=== PATIENT | male | born 1990 | race Caucasian/White ===

== ENCOUNTER 2021-11-30 10:06 | Emergency (ER) | payer SELFPAY ==
[2021-11-30 10:21] VITALS: BP 132/80; PULSE 85; RESP 18; TEMP 36.7; O2SAT 99; BMI 24.2
--- NOTE | 2021-11-30 10:41 | ED.FEVER ---
HPI - Fever General Chief Complaint: Fever Stated Complaint: Swelling in side of face, sores on neck, fever Time Seen by Provider: 11/30/21 10:34 Source: patient and family Mode of arrival: Ambulatory History of Present Illness HPI Narrative: The patient has multiple open skin lesions. The oldest 1 is been the back of his neck for 1 year. He has multiple open ulcer type lesions on his forearms and his neck. Over last couple days he has developed significant erythema and tenderness to the left jaw area. There is swelling at the site. He denies ear pain, rhinorrhea, or sore throat. He has no trismus. He has no posterior neck pain or stiffness. Denies cough or dyspnea. He denies chronic skin disease. He acknowledgs he picks the skin lesions frequently. Related Data Previous Rx's Medication Instructions Recorded sulfamethoxazole 800 1 tab PO BID 10 Days #20 tab 11/30/21 mg-trimethoprim 160 mg tablet Allergies Allergy/AdvReac Type Severity Reaction Status Date / Time No Known Drug Allergies Allergy Verified 11/30/21 10:21 Review of Systems Review of Systems ROS Unobtainable: All systems reviewed & are unremarkable except as noted in HPI and below Patient History Medical History (Updated 11/30/21 @ 10:52 by Vamsi Olivera MD) No chronic diseases present Surgical History (Updated 11/30/21 @ 10:43 by Vamsi Olivera MD) No significant past surgical history Social History Smoking Status: Current every day smoker Smoking Status: Current every day smoker tobacco type: cigars alcohol intake frequency: a few times a month Substance Use Type: marijuana Exam Initial Vital Signs Initial Vital Signs: Vital Signs Temperature 98.1 F 11/30/21 10:21 Pulse Rate 85 11/30/21 10:21 Respiratory Rate 18 11/30/21 10:21 Blood Pressure 132/80 11/30/21 10:21 Pulse Oximetry 99 11/30/21 10:21 Const General: cooperative, comfortable, well developed and well groomed HENMT Head: other (Multiple facial skin lesions. See skin exam.) Nose: external nose normal Face and sinus: sinuses nontender Mouth: oropharynx normal and No trismus Other HENMT:: No trismus Neck Neck: no meningeal signs and lymphadenopathy (Bilateral anterior cervical lymphadenopathy. Left posterior cervical nodes) Resp Auscultation: clear to auscultation bilaterally Skin Other: Multiple picked skin lesions on his neck, face, and upper extremities. Erythema with warmth to the left TMJ area extending down the left neck. There is superimposed lymphadenopathy about the site. There is no induration or fluctuance. Neuro General: patient alert, patient awake, patient oriented x3 and no focal motor deficits Course Course Course Narrative: Patient has multiple open picked lesions as described in the exam. He has notable left facial cellulitis, associated will 1 of the lesions. There is no evidence of abscess. He has no trismus. He is started on Septra DS, Hibiclens is recommended for bathing. Orders Ordered: Discontinued Medications Trimethoprim/Sulfamethoxazole (Trimeth/Sulfa 160/800 (Ds) Tablet) 2 tab PO NOW ONE Stop: 11/30/21 10:40 Vital Signs Vital signs: Vital Signs - 8 hr 11/30/21 10:21 Temperature 98.1 F Pulse Rate 85 Respiratory Rate 18 Blood Pressure 132/80 Pulse Oximetry 99 Discharge Plan Departure Patient Disposition: Home Clinical Impression: Cellulitis Instructions: Cellulitis Activity Restrictions/Additional Instructions: Septra DS 2 times daily for 10 days. Scrub down with Hibiclens while showering daily until the skin symptoms are improving. Even then you may consider using Hibiclens about once weekly. 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 If you develop increased facial swelling or fever return here. Prescriptions: New sulfamethoxazole-trimethoprim 800-160 mg tablet 1 tab PO BID 10 Days Qty: 20 0RF
[2021-11-30] MEDS: TRIMETH/SULFA 160/800 (DS) TABLET 2 TAB PO (10:56)
[2021-11-30 11:04] VITALS: BP 116/71; PULSE 82; RESP 16; O2SAT 99
== END 2021-11-30 11:05 | disposition home or self-care (01) ==
PROVIDERS: Emergency Provider Emergency Medicine
DX: L03.211 Cellulitis of face (principal)
CPT/HCPCS: 99283

== ENCOUNTER 2022-06-23 15:03 | Emergency (ER) | payer SELFPAY ==
[2022-06-23 15:20] VITALS: BP 133/64; PULSE 67; RESP 20; TEMP 36.9; O2SAT 98; BMI 25.0
--- NOTE | 2022-06-23 15:26 | DI.RAD.S_ITS ---
PROCEDURE: XR CHEST 2V INDICATIONS: Pain with cough/inspiration TECHNIQUE: 2 views of the chest were acquired. COMPARISON: None. FINDINGS: Surgical changes and devices: None. Lungs and pleura: Lungs are clear. No pleural effusions or pneumothorax. Mediastinum: Mediastinal contours are normal. Heart size is normal. Bones and chest wall: No suspicious bony abnormalities. Soft tissues appear unremarkable. IMPRESSION: Normal for age, source of current chest pain and cough symptoms is not seen. Dictated by: Jose Teague M.D. on 06/23/2022 at 15:55 Approved by: Jose Teague M.D. on 06/23/2022 at 15:57
--- NOTE | 2022-06-23 18:35 | ED_ITS ---
HPI - Chest Pain General Chief Complaint: Upper Respiratory Symptoms Stated Complaint: Cracked rib Time Seen by Provider: 06/23/22 18:29 Source: patient Mode of arrival: Ambulatory Limitations: no limitations History of Present Illness HPI narrative: This is a 31-year-old male with history of tobacco use who has stopped recently with complaint of right-sided chest pain. Patient states he is had a couple weeks where he is had pain with cough, he states today he sneezed and felt sudden increase in his pain and a crack sensation. Patient states he has not had any fevers he is had some nasal congestion he is had some cough he is attributed to stopping smoking and seasonal allergies. He states that typically there has not been much productive sputum but had 1 or 2 occasions with yellow sputum with small flecks. He denies any shortness of breath. He has pain with increased breath, sneezing or coughing. Patient has not noticed any skin changes no redness, no bruising states it is the right side of the chest more on the anterior aspect but can wrap around towards the back. He is not had any nausea or vomiting no other GI or urinary symptoms. Patient has not had any diaphoresis. Patient denies any other daily medications. No prior surgeries. Quit smoking tobacco recently. Related Data Previous Rx's Medication Instructions Recorded lidocaine 5 % topical patch 1 patch topical DAILY PRN pain #30 06/23/22 ea Allergies Allergy/AdvReac Type Severity Reaction Status Date / Time No Known Drug Allergies Allergy Verified 06/23/22 15:20 Review of Systems Review of Systems ROS Unobtainable: All systems reviewed & are unremarkable except as noted in HPI and below Patient History Medical History No chronic diseases present Surgical History No significant past surgical history Social History Smoking Status: Current every day smoker Smoking Status: Current every day smoker tobacco type: cigars alcohol intake frequency: a few times a month Substance Use Type: marijuana Exam Narrative Exam Narrative: GENERAL: Alert and oriented x three, male in mild distress HEENT: Head normocephalic, atraumatic, EOMI, pupils reactive, face symmetric, moist mucous membranes NECK: Supple, full range of motion CARDIOVASCULAR: Regular rate and rhythm without murmurs, rubs or gallops. RESPIRATORY: Breath sounds equal bilaterally, no wheezes rales or rhonchi. Patient is tender on palpation. No erythema, no skin changes, no rash, blisters or vesicles. Patient has normal range of motion. ABDOMEN: Soft, nontender. Normoactive bowel sounds all 4 quadrants. No guarding or rebound, rigidity, no mass : No CVA tenderness EXTREMITIES: Normal range of motion, no clubbing or edema. Neurovascularly inta ct NEUROLOGICAL: Cranial nerves II through XII grossly intact. Moving all extremities SKIN: Warm, dry, no petechiae, no rashes or lesions. Initial Vital Signs Initial Vital Signs: Vital Signs Temperature 98.4 F 06/23/22 15:20 Pulse Rate 67 06/23/22 15:20 Respiratory Rate 20 06/23/22 15:20 Blood Pressure 133/64 06/23/22 15:20 Pulse Oximetry 98 06/23/22 15:20 Oxygen Delivery Method 06/23/22 15:20 Course Orders Ordered: ED Orders 06/23/22 15:26 XR chest 2V Stat Vital Signs Vital signs: Vital Signs - 8 hr 06/23/22 18:53 Pulse Rate 66 Respiratory Rate 19 Blood Pressure 132/76 Pulse Oximetry 98 Oxygen Delivery Method Room Air MDM - Chest Pain Imaging Data Chest x-ray: Radiologist's Impression: [address] [address] XRay Report Signed Patient: Alex Zafar MR#: [id number] : 1990 Acct:[id number] Age/Sex: 31 / M Date of Service: 06/23/22 Loc: ED Accession Number: [id number] ?? Procedure: XR chest 2V Ordering Provider: José Miguel Asher D.O. PROCEDURE:? XR CHEST 2V ? INDICATIONS:? Pain with cough/inspiration ? TECHNIQUE:? 2 views of the chest were acquired.? ? COMPARISON:? None. ? FINDINGS:? ? Surgical changes and devices:? None.? ? Lungs and pleura:? Lungs are clear.? No pleural effusions or pneumothorax.? ? Mediastinum:? Mediastinal contours are normal.? Heart size is normal.? ? Bones and chest wall:? No suspicious bony abnormalities.? Soft tissues appear unremarkable.? ? IMPRESSION:? Normal for age, source of current chest pain and cough symptoms is not seen. ? ? Dictated by: Jose Teague M.D. on 06/23/2022 at 15:55 ? ? Approved by: Jose Teague M.D. on 06/23/2022 at 15:57?? MDM Narrative Medical decision making narrative: This is a 31-year-old male who comes to the emergency department with complaint of right rib pain with movement cough and worsened by sneeze today. He is had some persistent cough recently patient had deferred swab for COVID/influenza RSV. He is overall well-appearing on exam. I am not able to clearly reproduce his pain but is very localized. Suspicion for other causes such as cardiac, embolic or vascular low. Patient chest x-ray does not show structural changes, no pneumonia, no changes the ribs, no pneumothorax. Discussed with patient he is not been taking anything for pain at home he can do Tylenol/ibuprofen helpful he can do lidocaine patch as seems to be somewhat localized. He did ask about CBD topically which we discussed would be fine but can not do lidocaine patches this can affect absorption and create problems. Discharge Plan Departure Patient Disposition: Home Clinical Impression: Chest pain Activity Restrictions/Additional Instructions: Please follow-up if your symptoms continue to worsen over the next several weeks. You may use Tylenol up to a 1000 mg every 6 hours and/or ibuprofen up to 600 mg every 6 hours. You can use topical lidocaine patches directed. Prescription sent to [facility] in [place]. Please return for fevers, rapidly worsening symptoms, new shortness of breath, passing out, coughing up blood, new rashes or skin changes over the area of pain, new swelling in your extremities or other new or concerning changes. Prescriptions: New lidocaine 5 % adhesive patch,medicated 1 patch topical DAILY PRN (Reason: pain) Qty: 30 0RF Rx Instructions: leave on most painful area for up to 12 hrs Visit Report Forms: Patient Portal/API
[2022-06-23 18:53] VITALS: BP 132/76; PULSE 66; RESP 19; O2SAT 98
--- NOTE | 2022-06-23 18:56 | PC.NURSE ---
Patient was evaluated and discharged by provider prior to nursing assessment.
== END 2022-06-23 18:56 | disposition home or self-care (01) ==
PROVIDERS: Emergency Provider Emergency Medicine
DX: R07.9 Chest pain, unspecified (principal); R05.9 Cough, unspecified
CPT/HCPCS: 71046; 99283